=== PATIENT | female | born 1980 | race Two or more races ===

== ENCOUNTER 2023-05-06 06:30 | Inpatient (IN) | payer OTHER ==
[~2023-05-06] VITALS: Ht 170.2 cm; Wt 63.5 kg
[~2023-05-06 06:30] MED LIST: LEXAPRO5 MG PO; LYRICA50 MG PO; VISTARIL25 MG PO
== END 2023-05-07 15:30 | disposition home or self-care (01) | DRG 581 ==
LOC: CIR.AMB 06:30 → SURH 18:14
PROVIDERS: Plastic Surgery; ADMIT Surgery; ATTEND Surgery
PROC: 0HHV0NZ Insertion of Tissue Expander into Bilateral Breast, Open Approach (ICD-10-PCS; 2023-05-06)
PROC: 07B50ZZ Excision of Right Axillary Lymphatic, Open Approach (ICD-10-PCS; principal; 2023-05-06 07:15)
PROC: 0HTV0ZZ Resection of Bilateral Breast, Open Approach (ICD-10-PCS; 2023-05-06 07:15)
DX: D05.11 Intraductal carcinoma in situ of right breast (principal); N65.1 Disproportion of reconstructed breast; Z20.822 Contact with and (suspected) exposure to COVID-19; Z90.11 Acquired absence of right breast and nipple

== ENCOUNTER 2023-05-09 14:25 | Emergency (ER) | payer OTHER ==
[~2023-05-09] VITALS: Ht 170.2 cm; Wt 63.5 kg
[2023-05-09 16:21] LABS: HEMATOCRIT 39.3 % (36.0-45.00); HEMOGLOBIN 13.5 g/dL (12.0-15.00); MEAN CELL VOLUME 89.9 fL (80.00-100.00); MEAN CORPUSCULAR HEMOGLOBIN 30.9 pg (27.00-32.0); MEAN CORPUSCULAR HGB CONC 34.4 g/dl (32.0-36.0); PLATELET COUNT 314 K/uL (150-450); RED BLOOD COUNT 4.38 M/uL (4.00-6.00); RED CELL DISTRIBUTION WIDTH 13.9 % (11.5-14.5)
[2023-05-09 16:35] LABS: D DIMER 2.06 MG/L; INR < 0.93; PARTIAL THROMBOPLASTIN TIME 26.1 SECONDS (22.0-34.0); PROTHROMBIN TIME 9.8 SECONDS (9.0-11.5)
[2023-05-09 16:40] LABS: ALBUMIN 3.2 gm/dL (3.4-5.0); BILIRUBIN TOTAL 0.34 mg/dL (0.3-1.2); CALCIUM 8.9 mg/dL (8.5-10.1); CREATININE SERUM 0.61 mg/dL (0.55-1.02); GFR 107.56; GLOBULINA 3.5 G/DL (2.4-3.5); POTASSIUM 4.17 mEq/L (3.5-5.1); TOTAL PROTEIN 6.7 gm/dL (6.4-8.2)
[2023-05-09 17:42] LABS: ABG PH 7.449 (7.35-7.45); ABG PO2 93.6 mmHg (80-100); ABG pCO2 33.8 mmHg (35-45); BASE EXCESS -0.4 mmol/l; BICARBONATE 22.9 mmol/l (23-25); SaO2 97.6 %; allen test SATISFACTORY; o2 21 %; puncture site RADIAL LEFT
== END 2023-05-10 17:20 | disposition home or self-care (01) ==
LOC: ER 14:26
PROVIDERS: General Practice
DX: R23.0 Cyanosis (principal); C50.911 Malignant neoplasm of unspecified site of right female breast

== ENCOUNTER 2024-12-28 06:16 | Day surgery (SDC) | payer OTHER ==
[2024-12-26 11:25] VITALS: BP 107/73
[~2024-12-28] VITALS: Ht 170.2 cm; Wt 65.8 kg
[~2024-12-28 06:16] MED LIST changes: +EFFEXOR XR37.5 MG PO; +TAMOXIFEN CITRA10 MG PO
[2024-12-28] MEDS ORDERED: ONDANSETRON HCL 2 MG/ML VIAL IV PRN (09:00)
[2024-12-28] MEDS ORDERED: MORPHINE SULFATE 4 MG/ML VIAL IV PRN (09:00)
[2024-12-28] MEDS ORDERED: POVIDONE-IODINE 118 ML BOTT TOP ONE (10:15)
[2024-12-28] MEDS ORDERED: POVIDONE-IODINE SCRUB 118 ML BOTT TOP ONE (10:15)
[2024-12-28] MEDS ORDERED: TRANEXAMIC ACID 100MG/1ML (1000MG) AMPUL IV ONE ×2 (10:15)
[2024-12-28] MEDS ORDERED: CEFAZOLIN SODIUM 1,000 MG VIAL IJ ONE (10:15)
[2024-12-28] MEDS ORDERED: CLINDAMYCIN PHOSPHATE 150 MG/ML (900mg) IV SCH (10:15)
[2024-12-28] MEDS ORDERED: GENTAMICIN SULFATE/PF 10 MG/ML VIAL IJ ONE (10:30)
[2024-12-28] MEDS ORDERED: SUGAMMADEX SODIUM 200 MG/2 ML VIAL IV ONE (12:45)
[2024-12-28] MEDS ORDERED: MORPHINE SULFATE 2 MG/ML CARTRIDGE IV ONE (13:00)
== END 2024-12-28 14:05 | disposition home or self-care (01) ==
LOC: CIR.AMB 06:16
PROVIDERS: ATTEND Plastic Surgery
DX: C50.411 Malignant neoplasm of upper-outer quadrant of right female breast (principal); N60.32 Fibrosclerosis of left breast; Z90.13 Acquired absence of bilateral breasts and nipples; Z80.3 Family history of malignant neoplasm of breast; D48.62 Neoplasm of uncertain behavior of left breast; N63.32 Unspecified lump in axillary tail of the left breast; N65.1 Disproportion of reconstructed breast